=== PATIENT | male | born 1950 | race Caucasian/White ===

== ENCOUNTER 2018-08-12 07:29 | Day surgery (SDC) | payer MEDICARE, OTHER ==
[2018-08-12] MEDS ORDERED: PROPOFOL 500 MG/50 ML EMU IV ONE (07:41)
[2018-08-12] MEDS ORDERED: LIDOCAINE HCL 1% MPF 30 SOL ONE (07:41)
[2018-08-12] MEDS ORDERED: FENTANYL 100MCG/2ML SOL ONE (07:58)
[2018-08-12] MEDS ORDERED: CEFAZOLIN SODIUM 1 GM PDS ONE (09:39)
[2018-08-12] MEDS: BUPIVACAINE/EPI 0.5% 10 ML SOL INFIL ONE ×2 (09:48→10:17)
[2018-08-12 11:17] VITALS: O2SAT 97
[2018-08-12 12:09] VITALS: BP 119/79; PULSE 60; RESP 16; TEMP 97.7
== END 2018-08-12 12:23 | disposition home or self-care (01) | DRG 394 ==
LOC: SURG 07:29
PROVIDERS: ATTEND Surgery
DX: K40.90 Unilateral inguinal hernia, without obstruction or gangrene, not specified as recurrent (principal); K57.32 Diverticulitis of large intestine without perforation or abscess without bleeding; Z86.010 Personal history of colon polyps; Z80.0 Family history of malignant neoplasm of digestive organs; D12.0 Benign neoplasm of cecum
CPT/HCPCS: 51798; J0690; J3010; A6402; C1781; J2001; J2704